=== PATIENT | male | born 1990 | race Caucasian/White ===

== ENCOUNTER 2021-01-15 13:12 | Emergency (ER) | payer SELFPAY ==
[~2021-01-15] VITALS: Ht 177.8 cm; Wt 80.0 kg
[2021-01-15] MEDS ORDERED: ACETAMINOPHEN 500 MG TABLET PO ONE (15:15)
[2021-01-15 15:34] LABS: COVID AG,FIA SOURCE NASOPHARYNGEAL
[2021-01-15 16:21] VITALS: BP 144/87
== END 2021-01-15 16:22 | disposition home or self-care (01) ==
LOC: EMS 13:16
DX: R51.9 Headache, unspecified (principal); F14.10 Cocaine abuse, uncomplicated; F15.10 Other stimulant abuse, uncomplicated; F10.10 Alcohol abuse, uncomplicated; F16.10 Hallucinogen abuse, uncomplicated; Z20.822 Contact with and (suspected) exposure to COVID-19
CPT/HCPCS: 70450; 99284